=== PATIENT | female | born 1945 | race Caucasian/White ===

== ENCOUNTER 2017-02-04 12:35 | Emergency (ER) | payer MEDICARE ==
[~2017-02-04] VITALS: Ht 154.9 cm; Wt 59.9 kg
[~2017-02-04 12:35] MED LIST: ASPI81TA31 PO; LEVO25TA2 PO; LEVO75TA56 PO
--- NOTE | 2017-02-04 13:48 | NUR ---
Patient discharged to home in stable conditon. Written and verbal after care instructions given to patient and spouse. Patient and family member verbalized understanding of instructions. Spouse says that he will come back to our ER oyster picker the CD copy of the x-ray film.
== END 2017-02-04 13:48 | disposition home or self-care (01) ==
LOC: ER 12:35
DX: S42.211A Unspecified displaced fracture of surgical neck of right humerus, initial encounter for closed fracture (principal); E03.9 Hypothyroidism, unspecified; Z79.82 Long term (current) use of aspirin; W01.0XXA Fall on same level from slipping, tripping and stumbling without subsequent striking against object, initial encounter; Y93.01 Activity, walking, marching and hiking; Y92.34 Swimming pool (public) as the place of occurrence of the external cause; Y99.8 Other external cause status
CPT/HCPCS: 73030; 73110; 99284; A4663

== ENCOUNTER 2017-03-26 16:56 | Emergency (ER) | payer MEDICARE ==
[~2017-03-26] VITALS: Ht 154.9 cm; Wt 59.9 kg
[2017-03-26] MEDS ORDERED: ONDANSETRON 4 MG/2 ML VIAL IV ONE (17:15)
[2017-03-26] MEDS ORDERED: IV NORMAL SALINE 1000 ML BAG IV ONE (17:15)
[2017-03-26] MEDS ORDERED: ONDANSETRON 4 MG/2 ML VIAL ONE (17:26)
[2017-03-26 17:27] LABS: BASOPHILS % (AUTO) 0.4 % (0.0-2.0); EOSINOPHILS # (AUTO) 0.1 K/uL (0.0-0.7); EOSINOPHILS % (AUTO) 1.3 % (0.0-7.0); HEMATOCRIT 40.1 % (37-47); HEMOGLOBIN 13.4 G/DL (12.0-16.0); LYMPHOCYTES % (AUTO) 19.9 % (20.5-51.5); MEAN CORPUSCULAR HEMOGLOBIN 29.2 UUG (27.0-31.0); MEAN CORPUSCULAR HGB CONC 34 g/dL (32.0-37.0); MONOCYTES # (AUTO) 0.4 K/UL (0.1-1.30); MONOCYTES % (AUTO) 8.4 % (0.0-11.0); NEUTROPHILS # (AUTO) 3.4 K/UL (1.8-8.9); PLATELET COUNT (AUTO) 164 K/UL (150-450); RED BLOOD CELL COUNT(AUTO) 4.61 MIL/UL (4.2-5.4); WHITE BLOOD COUNT (AUTO) 4.9 K/UL (4.0-11.2)
[2017-03-26 17:34] LABS: CARBON DIOXIDE 26 mmol/L (21-32); CHLORIDE 103 mmol/L (98-107); CREATININE 0.8 mg/dL (0.6-1.3); GLUCOSE 141 mg/dL (74-106); POTASSIUM 3.6 mmol/L (3.5-5.1); UREA NITROGEN, BLOOD 11 mg/dL (7-18)
[2017-03-26 17:40] LABS: ALANINE AMINOTRANSFERASE 44 U/L (14-59); ALKALINE PHOSPHATASE 101 U/L (50-136); ASPARTATE AMINOTRANSFERASE 50 U/L (15-37); BILIRUBIN,DIRECT 0.1 mg/dL (0.0-0.2); BILIRUBIN,TOTAL 0.4 mg/dL (0.2-1.0); TOTAL PROTEIN, SERUM 7.4 g/dL (6.4-8.2)
--- NOTE | 2017-03-26 18:40 | NUR ---
IV removed. Catheter intact and site benign. Pressure and 4x4 gauze applied to site. No bleeding noted.Patient discharged to home in stable conditon. Written and verbal after care instructions given. Patient verbalizes understanding of instructions. Stressed follow up or return to ER for worsening s/s.
[2017-03-26 18:58] LABS: LIPASE 224 U/L (73-393)
== END 2017-03-26 18:43 | disposition home or self-care (01) ==
LOC: ER 16:57
DX: K52.9 Noninfective gastroenteritis and colitis, unspecified (principal); E03.9 Hypothyroidism, unspecified; Z79.82 Long term (current) use of aspirin
CPT/HCPCS: 36415; 80048; 80076; 83690; 85025; 96361; 96374; 99284; A4663; J2405; J7030

== ENCOUNTER 2018-07-07 10:41 | Emergency (ER) | payer MEDICARE ==
[~2018-07-07] VITALS: Ht 154.9 cm; Wt 63.5 kg
--- NOTE | 2018-07-07 10:55 | NUR ---
PT A/OX4, PRESENTS TO THE ER C/O GENERALIZED FATIGUE, NAUSEA, AND POOR APPETITE SINCE WEDNESDAY. PT REPORTS SHE RECENTLY HAD DENTAL PROCEDURE AND WAS PRESCRIBED AMOXICILLIN AND HAS BEEN FEELING NAUSEOUS SINCE THEN. VSS. PT DENIES PAIN, C/P, SOB, VOMITING, DIZZINESS, HEADACHE.
--- NOTE | 2018-07-07 11:02 | NUR ---
ZENON MONTILLA AT BEDSIDE FOR MSE.
[2018-07-07] MEDS ORDERED: IV NORMAL SALINE 1000 ML BAG IV ONE (11:15)
[2018-07-07 11:22] LABS: BASOPHILS % (AUTO) 0.6 % (0.0-2.0); EOSINOPHILS # (AUTO) 0.1 K/uL (0.0-0.7); EOSINOPHILS % (AUTO) 2.9 % (0.0-7.0); HEMATOCRIT 41.2 % (31.2-41.9); LYMPHOCYTES # (AUTO) 1.5 K/uL (20.0-40.0); LYMPHOCYTES % (AUTO) 41.9 % (20.5-51.5); MEAN CORPUSCULAR HEMOGLOBIN 29.9 uug (24.7-32.8); MEAN CORPUSCULAR HGB CONC 34 g/dL (32.3-35.6); MEAN CORPUSCULAR VOLUME 88.3 fL (75.5-95.3); MONOCYTES # (AUTO) 0.3 K/uL (2.0-10.0); MONOCYTES % (AUTO) 8.5 % (0.0-11.0); NEUTROPHILS # (AUTO) 1.6 K/uL (1.8-8.9); NEUTROPHILS % (AUTO) 46.1 % (38.5-71.5); PLATELET COUNT (AUTO) 177 K/uL (179-408); RED BLOOD CELL COUNT(AUTO) 4.67 MIL/uL (3.63-4.92); WHITE BLOOD COUNT (AUTO) 3.6 K/uL (3.8-11.8)
[2018-07-07 11:29] LABS: CARBON DIOXIDE 28 mmol/L (21-32); CHLORIDE 105 mmol/L (98-107); CREATININE 0.8 mg/dL (0.6-1.3); GLUCOSE 123 mg/dL (74-106); POTASSIUM 3.8 mmol/L (3.5-5.1); UREA NITROGEN, BLOOD 11 mg/dL (7-18)
[2018-07-07 11:38] LABS: *BILIRUBIN,URIN NEGATIVE (NEGATIVE); *BLOOD, URINE 2+ (NEGATIVE); *CLARITY,URINE CLEAR (CLEAR); *COLOR,URINE YELLOW (YELLOW); *KETONES,URINE NEGATIVE (NEGATIVE); *UROBILINOGEN,URINE 0.2 E.U./dl (NORMAL); LEUKOCYTE ESTERASE ,URINE NEGATIVE (NEGATIVE); NITRITE, URINE NEGATIVE (NEGATIVE); PH,URINE 5.5 (5.0-8.0); UGLUCOSE NEGATIVE (NEGATIVE)
[2018-07-07 11:41] LABS: ALANINE AMINOTRANSFERASE 59 U/L (14-59); ALKALINE PHOSPHATASE 122 U/L (50-136); ASPARTATE AMINOTRANSFERASE 52 U/L (15-37); BILIRUBIN,DIRECT 0.1 mg/dL (0.0-0.2); BILIRUBIN,TOTAL 0.4 mg/dL (0.2-1.0); TOTAL PROTEIN, SERUM 7.8 g/dL (6.4-8.2)
[2018-07-07 11:53] LABS: BACTERIA,URINE FEW /HPF (NONE SEEN); SQUAMOUS EPITHELIAL CELL,UR FEW /HPF (NONE SEEN); WBC,URINE 0-3 /HPF (0-3)
--- NOTE | 2018-07-07 12:18 | NUR ---
Patient discharged to home in stable conditon. Written and verbal after care instructions given. Patient verbalizes understanding of instructions. ALL BELONGINGS W/ PT. PT SELF-AMBUALTED W/O DIFFICULTY. 20G IV ACCESS IN LAC REMOVED PRIOR TO D/C - INNER CANNULA INTACT.
[2018-07-07 12:19] VITALS: BP 169/85
== END 2018-07-07 12:19 | disposition home or self-care (01) ==
LOC: ER 10:41
DX: R53.1 Weakness (principal); R11.2 Nausea with vomiting, unspecified; E03.9 Hypothyroidism, unspecified; Z79.82 Long term (current) use of aspirin; Z79.899 Other long term (current) drug therapy
CPT/HCPCS: 36415; 70030-TC; 71045; 84443; 85025; 85730; 87077; 87086; 93005; A4663; J7030